=== PATIENT | male | born 1930 | race Caucasian/White ===

== ENCOUNTER 2016-05-23 15:45 | Inpatient (IN) | payer OTHER, BC ==
[~2016-05-23] VITALS: Ht 182.9 cm; Wt 91.0 kg
[~2016-05-23 15:45] MED LIST: AMLODIPINE BESYL5 MG PO; ASPIR 8181 M1 PO; ASPIRIN81 M2 PO; Aspirin E.C. PO; CENTRUM SILV1 TABLE1 PO; CENTRUM SILVER1 EAC3 PO; COLCRYS0.6 MG PO; COUMADIN,JANTOVE2 MG PO; DOCUSATE SODIU100 MG PO; Ferrous Gluconate PO; Flexeril PO; HYDROCHLOROTHIA25 MG PO; LANOXIN,DIGI0.125 MG PO; LASIX20 MG PO; LOPID600 MG PO; LOPRESSOR50 MG PO; LORTAB 5-325 M1 EACH PO; LYRICA150 MG PO; METAXALONE800 MG PO; METOPROLOL SUCC25 MG PO; METOPROLOL TART25 MG PO; MOTRIN600 MG PO; NAPRELAN500 MG PO; NAPROSYN500 MG PO; NEXIUM40 MG PO; NOVOLOG100 UNIT/2 SQ; Norco 7.5/325 PO; OXYCODONE5 MG PO; PANTOPRAZOLE SO40 MG PO; PERCOCET 5/31 TABLET PO; PRAVACHOL80 MG PO; PRINIVIL10 MG PO; PROTONIX40 MG PO; SKELAXIN800 MG PO; SOTALOL80 MG PO; SPIRIVA1 INHALATI IH; TYLENOL EXTRA500 MG PO; ZOFRAN4 MG PO; Zestril,Prinivil PO
[2016-05-23] MEDS ORDERED: NAPRELAN500 MG PO (16:32)
[2016-05-23 21:02] LABS: EOSINOPHIL (%) 0.2 % (0-5); HEMATOCRIT 46.2 % (38.0-50.0); IMMATURE GRANULOCYTE (%) 0.3 % (0.0-0.7); IMMATURE GRANULOCYTE COUNT 0.4 K/uL; LYMPHOCYTE COUNT 1.5 K/uL (1.0-2.8); MCH 28.1 PG (29.0-34.0); MCHC 33.8 G/DL (30.0-36.0); MCV 83.1 FL (86-99); MEAN PLAT.VOLUME 11.1 uM^3 (9.0-12.4); MONOCYTE (%) 7.1 % (3-12); MONOCYTE COUNT 1.1 K/uL (0-0.8); NEUTROPHIL (%) 82.6 % (45-76); NEUTROPHIL COUNT 12.7 K/uL (1.8-6.4); PLATELET COUNT 204 K/uL (156-360); RBC DIS.WIDTH-CV 13.7 % (11.8-14.6); RBC DIS.WIDTH-SD 41.4 % (39-53); RED BLOOD COUNT 5.56 M/uL (4.00-5.50); WHITE BLOOD COUNT 15.4 K/uL (4.1-10.2)
[2016-05-23 21:08] LABS: CHLORIDE 104 mEq/L (99-109); POTASSIUM 4.1 mEq/L (3.7-5.4); SODIUM 137 mEq/L (136-147)
[2016-05-23 21:10] LABS: GLUCOSE 107 mg/dL (70-99)
[2016-05-23 21:11] LABS: ANION GAP 11 MEQ/L (2-14)
[2016-05-23 21:13] LABS: ALKALINE PHOSPHATASE 104 IU/L (3-129); GFR ESTIMATE (CALCULATED) > 59 mL/min/
[2016-05-23 21:15] LABS: UREA NITROGEN (BUN) 19 mg/dL (9-23)
[2016-05-23] MEDS ORDERED: NAPROSYN500 MG PO (22:03)
[2016-05-23] MEDS ORDERED: ARTIFICIAL TEAR1510 BOTH EYES (22:04)
[2016-05-23] MEDS ORDERED: TRIAMCINOLONE A15 G2 TP (22:04)
[2016-05-24] VITALS (7 sets, daily range): BP systolic 100–161; BP diastolic 64–88
[2016-05-25 04:02] VITALS: BP 111/67
[2016-05-25 08:23] VITALS: BP 121/63
[2016-05-25 09:46] LABS: HEMATOCRIT 41.3 % (38.0-50.0); MCH 28.1 PG (29.0-34.0); MCHC 32.2 G/DL (30.0-36.0); MEAN PLAT.VOLUME 11.7 uM^3 (9.0-12.4); PLATELET COUNT 163 K/uL (156-360); RBC DIS.WIDTH-SD 44.7 % (39-53); RED BLOOD COUNT 4.73 M/uL (4.00-5.50)
[2016-05-25 09:47] LABS: MCV 87.3 FL (86-99)
[2016-05-25 09:49] LABS: INTER. NORMALIZED RATIO 1.1; PROTHROMBIN TIME 11.4 (9.2-11.2); PTT 29.8 (25-32)
[2016-05-25 09:57] LABS: ALKALINE PHOSPHATASE 72 IU/L (3-129); ANION GAP 7 MEQ/L (2-14); CHLORIDE 102 MEQ/L (99-109); GFR ESTIMATE (CALCULATED) > 59 mL/min/; GLUCOSE 129 mg/dL (70-99); POTASSIUM 3.9 MEQ/L (3.7-5.4); SAMPLE HEMOLYSIS CHECK 0; SAMPLE ICTERIC CHECK 0; SAMPLE LIPEMIA CHECK 0; SODIUM 136 MEQ/L (136-147); TOTAL BILIRUBIN 0.9 MG/DL (0.0-1.0); UREA NITROGEN (BUN) 20 mg/dL (9-23)
[2016-05-25 12:04] VITALS: BP 136/71
[2016-05-25 16:30] VITALS: BP 128/72
[2016-05-25 20:38] VITALS: BP 139/78
[2016-05-26 00:43] VITALS: BP 133/76
[2016-05-26 05:15] VITALS: BP 158/84
[2016-05-26 07:47] VITALS: BP 161/89
[2016-05-26 12:57] LABS: HEMATOCRIT 41.7 % (38.0-50.0); MCH 29.2 PG (29.0-34.0); MCHC 33.6 G/DL (30.0-36.0); MCV 87.1 FL (86-99); MEAN PLAT.VOLUME 11.5 uM^3 (9.0-12.4); PLATELET COUNT 170 K/uL (156-360); RBC DIS.WIDTH-CV 13.7 % (11.8-14.6); RBC DIS.WIDTH-SD 43.5 % (39-53); RED BLOOD COUNT 4.79 M/uL (4.00-5.50)
[2016-05-26 12:58] LABS: WHITE BLOOD COUNT 15.4 K/uL (4.1-10.2)
[2016-05-26 15:58] VITALS: BP 121/64
[2016-05-26 18:38] LABS: HEMATOCRIT 40.9 % (38.0-50.0); MCV 85.7 FL (86-99)
[2016-05-26 23:40] VITALS: BP 136/76
[2016-05-27 06:57] LABS: HEMATOCRIT 35.3 % (38.0-50.0); MCH 28.6 PG (29.0-34.0); MCHC 33.4 G/DL (30.0-36.0); MCV 85.7 FL (86-99); MEAN PLAT.VOLUME 11.5 uM^3 (9.0-12.4); PLATELET COUNT 178 K/uL (156-360); RBC DIS.WIDTH-CV 13.3 % (11.8-14.6); RBC DIS.WIDTH-SD 41.3 % (39-53); RED BLOOD COUNT 4.12 M/uL (4.00-5.50)
[2016-05-27 06:59] LABS: WHITE BLOOD COUNT 10.6 K/uL (4.1-10.2)
[2016-05-27 07:21] LABS: ANION GAP 7 MEQ/L (2-14); CHLORIDE 97 MEQ/L (99-109); GFR ESTIMATE (CALCULATED) > 59 mL/min/; POTASSIUM 4.5 MEQ/L (3.7-5.4); SAMPLE HEMOLYSIS CHECK 0; SAMPLE ICTERIC CHECK 0; SAMPLE LIPEMIA CHECK 0; SODIUM 132 MEQ/L (136-147); UREA NITROGEN (BUN) 18 mg/dL (9-23)
[2016-05-27 07:22] LABS: GLUCOSE 96 mg/dL (70-99)
[2016-05-27 07:37] VITALS: BP 127/65
[2016-05-27 16:15] VITALS: BP 144/76
[2016-05-28 06:15] LABS: HEMATOCRIT 32.2 % (38.0-50.0); MCH 28.7 PG (29.0-34.0); MCHC 33.2 G/DL (30.0-36.0); MCV 86.3 FL (86-99); MEAN PLAT.VOLUME 11.3 uM^3 (9.0-12.4); PLATELET COUNT 168 K/uL (156-360); RBC DIS.WIDTH-CV 13.3 % (11.8-14.6); RBC DIS.WIDTH-SD 41.8 % (39-53); RED BLOOD COUNT 3.73 M/uL (4.00-5.50); WHITE BLOOD COUNT 8.2 K/uL (4.1-10.2)
[2016-05-28 06:57] LABS: ANION GAP 8 MEQ/L (2-14); CHLORIDE 99 MEQ/L (99-109); GFR ESTIMATE (CALCULATED) > 59 mL/min/; GLUCOSE 91 mg/dL (70-99); POTASSIUM 3.5 MEQ/L (3.7-5.4); SAMPLE HEMOLYSIS CHECK 0; SAMPLE ICTERIC CHECK 0; SAMPLE LIPEMIA CHECK 0; SODIUM 134 MEQ/L (136-147); UREA NITROGEN (BUN) 13 mg/dL (9-23)
[2016-05-28 08:25] VITALS: BP 132/65
[2016-05-28 15:53] VITALS: BP 123/67
[2016-05-29 00:06] VITALS: BP 152/80
[2016-05-29 05:41] LABS: MCH 28.4 PG (29.0-34.0); MCHC 32.9 G/DL (30.0-36.0); MCV 86.3 FL (86-99); MEAN PLAT.VOLUME 11.4 uM^3 (9.0-12.4); PLATELET COUNT 193 K/uL (156-360); RBC DIS.WIDTH-CV 13.3 % (11.8-14.6); RED BLOOD COUNT 3.94 M/uL (4.00-5.50); WHITE BLOOD COUNT 7.6 K/uL (4.1-10.2)
[2016-05-29 06:07] LABS: ANION GAP 10 MEQ/L (2-14); CHLORIDE 97 MEQ/L (99-109); GFR ESTIMATE (CALCULATED) > 59 mL/min/; GLUCOSE 93 mg/dL (70-99); POTASSIUM 3.5 MEQ/L (3.7-5.4); SAMPLE HEMOLYSIS CHECK 0; SAMPLE ICTERIC CHECK 0; SAMPLE LIPEMIA CHECK 0; SODIUM 137 MEQ/L (136-147); UREA NITROGEN (BUN) 11 mg/dL (9-23)
[2016-05-29 08:26] VITALS: BP 165/94
[2016-05-29] MEDS ORDERED: BENADRYL25 MG PO (08:58)
[2016-05-29] MEDS ORDERED: LOVENOX40 MG/0.4 SC (08:58)
[2016-05-29] MEDS ORDERED: NAPROXEN500 MG PO (08:59)
[2016-05-29] MEDS ORDERED: Tums,OsCal PO (09:01)
[2016-05-29] MEDS ORDERED: BISACODYL5 MG PO (09:01)
[2016-05-29] MEDS ORDERED: SENNA PLUS TAB1 EACH PO (09:01)
[2016-05-29] MEDS ORDERED: LIDOCAINE700 MG TD (09:02)
[2016-05-29] MEDS ORDERED: MIRALAX255 GM PO (09:03)
[2016-05-30] MEDS ORDERED: TUMS500 MG PO (09:03)
== END 2016-05-29 13:11 | DRG 480 ==
LOC: EME 15:45 → EDOF 05-24 00:48 → 3EAST 05-24 00:48
PROVIDERS: Emergency Medicine; Internal Medicine; Orthopaedic Surgery; Physician Assistant
PROC: 0SW Lower Joints, Revision (ICD-10-PCS; principal; 2016-05-26)
DX: M97.02XA Periprosthetic fracture around internal prosthetic left hip joint, initial encounter (principal); S72.302A Unspecified fracture of shaft of left femur, initial encounter for closed fracture; E87.1 Hypo-osmolality and hyponatremia; S73.011A Posterior subluxation of right hip, initial encounter; K21.9 Gastro-esophageal reflux disease without esophagitis; K59.00 Constipation, unspecified; I48.0 Paroxysmal atrial fibrillation; M25.552 Pain in left hip; M25.551 Pain in right hip; S22.42XD Multiple fractures of ribs, left side, subsequent encounter for fracture with routine healing; I10 Essential (primary) hypertension; W01.0XXA Fall on same level from slipping, tripping and stumbling without subsequent striking against object, initial encounter; Y92.009 Unspecified place in unspecified non-institutional (private) residence as the place of occurrence of the external cause; Y99.9 Unspecified external cause status; Z88.6 Allergy status to analgesic agent; Z87.891 Personal history of nicotine dependence; Z96.643 Presence of artificial hip joint, bilateral; Z96.653 Presence of artificial knee joint, bilateral; Z79.82 Long term (current) use of aspirin
CPT/HCPCS: 71010; 72100; 73501; 73502; 73521; 73551; 73552; 73700; 76000; 80048; 80053; 85014; 85018; 85025; 85027; 85610; 85730; 86850; 86900; 86901; 93005; 94799; 97530 GP; 99281; 99285; C1713; J0330; J0690; J1170; J1650; J1885; J2270; J2405; J2710; J2765; J3010; J3360; J7030

== ENCOUNTER 2016-05-29 08:22 | Inpatient (IN) | payer OTHER, BC ==
[~2016-05-29] VITALS: Ht 182.9 cm; Wt 103.5 kg
[~2016-05-29 08:22] MED LIST changes: +ARTIFICIAL TEAR1510 BOTH EYES; +TRIAMCINOLONE A15 G2 TP
[2016-05-29] MEDS ORDERED: BENADRYL25 MG PO (08:58)
[2016-05-29] MEDS ORDERED: LOVENOX40 MG/0.4 SC (08:58)
[2016-05-29] MEDS ORDERED: NAPROXEN500 MG PO (08:59)
[2016-05-29] MEDS ORDERED: Tums,OsCal PO (09:01)
[2016-05-29] MEDS ORDERED: BISACODYL5 MG PO (09:01)
[2016-05-29] MEDS ORDERED: SENNA PLUS TAB1 EACH PO (09:01)
[2016-05-29] MEDS ORDERED: LIDOCAINE700 MG TD (09:02)
[2016-05-29] MEDS ORDERED: MIRALAX255 GM PO (09:03)
[2016-05-29 13:45] VITALS: BP 130/78
[2016-05-30] VITALS: BP 127/72
[2016-05-30 05:01] VITALS: BP 137/81
[2016-05-30 06:41] LABS: HEMATOCRIT 33.8 % (38.0-50.0); MCH 27.8 PG (29.0-34.0); MCHC 32.5 G/DL (30.0-36.0); MCV 85.4 FL (86-99); MEAN PLAT.VOLUME 11.4 uM^3 (9.0-12.4); PLATELET COUNT 236 K/uL (156-360); RBC DIS.WIDTH-CV 13.2 % (11.8-14.6); RBC DIS.WIDTH-SD 40.8 % (39-53); RED BLOOD COUNT 3.96 M/uL (4.00-5.50); WHITE BLOOD COUNT 7.8 K/uL (4.1-10.2)
[2016-05-30 07:28] LABS: ALKALINE PHOSPHATASE 80 IU/L (3-129); ANION GAP 10 MEQ/L (2-14); CHLORIDE 99 MEQ/L (99-109); GFR ESTIMATE (CALCULATED) > 59 mL/min/; GLUCOSE 87 mg/dL (70-99); POTASSIUM 3.7 MEQ/L (3.7-5.4); SAMPLE HEMOLYSIS CHECK 0; SAMPLE ICTERIC CHECK 0; SAMPLE LIPEMIA CHECK 0; SODIUM 137 MEQ/L (136-147); UREA NITROGEN (BUN) 12 mg/dL (9-23)
[2016-05-30 07:29] LABS: TOTAL BILIRUBIN 1.2 MG/DL (0.0-1.0)
[2016-05-30] MEDS ORDERED: TUMS500 MG PO (09:03)
[2016-05-30 15:23] VITALS: BP 160/80
[2016-05-31 05:06] VITALS: BP 133/88
[2016-05-31 15:00] VITALS: BP 140/70
[2016-06-01 05:00] VITALS: BP 163/72
[2016-06-01 15:17] VITALS: BP 111/58
[2016-06-02 05:29] VITALS: BP 132/69
[2016-06-02 15:19] VITALS: BP 118/62
[2016-06-03 05:51] VITALS: BP 154/87
[2016-06-03 15:29] VITALS: BP 142/75
[2016-06-04 05:54] VITALS: BP 144/77
[2016-06-04 15:13] VITALS: BP 147/74
[2016-06-05 05:18] VITALS: BP 135/78
[2016-06-05 15:40] VITALS: BP 112/72
[2016-06-06 04:57] VITALS: BP 150/86
[2016-06-06] MEDS ORDERED: AMLODIPINE BESYL5 MG PO (11:38)
[2016-06-06] MEDS ORDERED: LIDOCAINE700 MG TD (11:38)
[2016-06-06] MEDS ORDERED: SOTALOL80 MG PO (11:38)
[2016-06-06] MEDS ORDERED: PROTONIX40 MG PO (11:38)
[2016-06-06] MEDS ORDERED: LOVENOX40 MG/0.4 SC (11:38)
[2016-06-06] MEDS ORDERED: ASCORBIC ACID500 M3 PO (11:38)
[2016-06-06] MEDS ORDERED: OYSTER SHELL 51 EACH PO (11:38)
[2016-06-06] MEDS ORDERED: HYDROCODON-ACE1 EAC7 PO (11:38)
[2016-06-06] MEDS ORDERED: SENNA PLUS TAB1 EACH PO (11:38)
[2016-06-06] MEDS ORDERED: FOLIC ACID1 MG PO (11:38)
[2016-06-06] MEDS ORDERED: MIRALAX255 GM PO (11:38)
[2016-06-06 15:14] VITALS: BP 119/66
[2016-06-07 05:29] LABS: HEMATOCRIT 36.5 % (38.0-50.0); MCH 28.3 PG (29.0-34.0); MCHC 32.3 G/DL (30.0-36.0); MCV 87.5 FL (86-99); RBC DIS.WIDTH-CV 14.9 % (11.8-14.6); RBC DIS.WIDTH-SD 46.5 % (39-53); RED BLOOD COUNT 4.17 M/uL (4.00-5.50); WHITE BLOOD COUNT 9.3 K/uL (4.1-10.2)
[2016-06-07 05:48] VITALS: BP 142/74
[2016-06-07 06:40] LABS: ALKALINE PHOSPHATASE 104 IU/L (3-129); ANION GAP 8 MEQ/L (2-14); CHLORIDE 98 MEQ/L (99-109); GFR ESTIMATE (CALCULATED) > 59 mL/min/; GLUCOSE 93 mg/dL (70-99); MEAN PLAT.VOLUME 10.7 uM^3 (9.0-12.4); POTASSIUM 3.9 MEQ/L (3.7-5.4); SAMPLE HEMOLYSIS CHECK 0; SAMPLE ICTERIC CHECK 0; SAMPLE LIPEMIA CHECK 0; SODIUM 133 MEQ/L (136-147); UREA NITROGEN (BUN) 10 mg/dL (9-23)
[2016-06-07 06:45] LABS: PLATELET COUNT 362 K/uL (156-360)
[2016-06-07 15:16] VITALS: BP 122/77
[2016-06-08] MEDS ORDERED: AMBIEN5 MG PO (20:09)
== END 2016-06-08 00:23 | DRG 560 ==
LOC: 3WEST 08:22
PROVIDERS: Physical Medicine & Rehabilitation Pain Medicine
PROC: F07M0ZZ Range of Motion and Joint Mobility Treatment of Musculoskeletal System - Whole Body (ICD-10-PCS; principal; 2016-05-29)
DX: S72.302D Unspecified fracture of shaft of left femur, subsequent encounter for closed fracture with routine healing (principal); M97.02XD Periprosthetic fracture around internal prosthetic left hip joint, subsequent encounter; T84.020D Dislocation of internal right hip prosthesis, subsequent encounter; R26.2 Difficulty in walking, not elsewhere classified; D62 Acute posthemorrhagic anemia; E87.6 Hypokalemia; E83.51 Hypocalcemia; I10 Essential (primary) hypertension; M17.9 Osteoarthritis of knee, unspecified; I48.0 Paroxysmal atrial fibrillation; K21.9 Gastro-esophageal reflux disease without esophagitis; K59.00 Constipation, unspecified; H91.93 Unspecified hearing loss, bilateral; Z88.5 Allergy status to narcotic agent; Z91.19 Patient's noncompliance with other medical treatment and regimen
CPT/HCPCS: 73501; 73502; 73560; 73564; 80053; 85027; 97110 GO; 97530 GP; J1650

== ENCOUNTER 2016-06-08 00:59 | Observation (INO) | payer OTHER, BC ==
[~2016-06-08] VITALS: Ht 182.9 cm; Wt 103.2 kg
[~2016-06-08 00:59] MED LIST changes: +ASCORBIC ACID500 M3 PO; +BENADRYL25 MG PO; +BISACODYL5 MG PO; +FOLIC ACID1 MG PO; +HYDROCODON-ACE1 EAC7 PO; +LIDOCAINE700 MG TD; +LOVENOX40 MG/0.4 SC; +MIRALAX255 GM PO; +NAPROXEN500 MG PO; +OYSTER SHELL 51 EACH PO; +SENNA PLUS TAB1 EACH PO; +TUMS500 MG PO; +Tums,OsCal PO
[2016-06-08 01:43] VITALS: BP 149/87
[2016-06-08 04:22] VITALS: BP 131/78
[2016-06-08 08:25] VITALS: BP 137/88
[2016-06-08 11:50] VITALS: BP 140/80
[2016-06-08 16:29] VITALS: BP 126/77
[2016-06-08] MEDS ORDERED: AMBIEN5 MG PO (20:09)
== END 2016-06-08 17:30 ==
LOC: 3EAST 00:59
PROC: 0SW9XJZ Revision of Synthetic Substitute in Right Hip Joint, External Approach (ICD-10-PCS; principal; 2016-06-08)
DX: T84.020A Dislocation of internal right hip prosthesis, initial encounter (principal); I48.91 Unspecified atrial fibrillation; I10 Essential (primary) hypertension; K21.9 Gastro-esophageal reflux disease without esophagitis; Z96.653 Presence of artificial knee joint, bilateral; Z96.643 Presence of artificial hip joint, bilateral; Z87.891 Personal history of nicotine dependence
CPT/HCPCS: 73552; G0378; J1650; J7120

== ENCOUNTER 2016-06-08 15:22 | Inpatient (IN) | payer OTHER, BC ==
[~2016-06-08] VITALS: Ht 182.9 cm; Wt 86.0 kg
[2016-06-08 17:30] VITALS: BP 128/62
[2016-06-08] MEDS ORDERED: AMBIEN5 MG PO (20:09)
[2016-06-08 23:47] VITALS: BP 124/70
[2016-06-09 05:43] VITALS: BP 155/70
[2016-06-09 05:46] LABS: HEMATOCRIT 38.3 % (38.0-50.0); MCH 28.7 PG (29.0-34.0); MCHC 32.6 G/DL (30.0-36.0); MEAN PLAT.VOLUME 10.8 uM^3 (9.0-12.4); PLATELET COUNT 354 K/uL (156-360); RBC DIS.WIDTH-CV 14.8 % (11.8-14.6); RBC DIS.WIDTH-SD 47.5 % (39-53); RED BLOOD COUNT 4.35 M/uL (4.00-5.50); WHITE BLOOD COUNT 9.6 K/uL (4.1-10.2)
[2016-06-09 06:20] LABS: ALKALINE PHOSPHATASE 112 IU/L (3-129); ANION GAP 10 MEQ/L (2-14); CHLORIDE 97 MEQ/L (99-109); GFR ESTIMATE (CALCULATED) > 59 mL/min/; GLUCOSE 80 mg/dL (70-99); SAMPLE HEMOLYSIS CHECK 0; SAMPLE ICTERIC CHECK 0; SAMPLE LIPEMIA CHECK 0; SODIUM 133 MEQ/L (136-147); TOTAL BILIRUBIN 1.2 MG/DL (0.0-1.0); UREA NITROGEN (BUN) 9 mg/dL (9-23)
[2016-06-09 15:40] VITALS: BP 119/59
[2016-06-10 04:58] VITALS: BP 144/74
[2016-06-10 15:45] VITALS: BP 135/74
[2016-06-11 05:24] VITALS: BP 140/85
[2016-06-11 15:00] VITALS: BP 114/69
[2016-06-12 05:34] VITALS: BP 144/77
[2016-06-12 15:15] VITALS: BP 109/68
[2016-06-13 05:11] VITALS: BP 158/61
[2016-06-13 15:10] VITALS: BP 133/70
[2016-06-14 05:15] VITALS: BP 137/81
[2016-06-14 15:52] VITALS: BP 124/71
[2016-06-15 15:12] VITALS: BP 132/93
[2016-06-16 05:10] VITALS: BP 150/93
[2016-06-16 09:00] VITALS: BP 143/83
[2016-06-16 15:15] VITALS: BP 112/63
[2016-06-16] MEDS ORDERED: TYLENOL REGULA325 MG PO (17:50)
[2016-06-17 05:31] LABS: HEMATOCRIT 43.7 % (38.0-50.0); MCH 28.8 PG (29.0-34.0); MCHC 33.2 G/DL (30.0-36.0); MCV 86.9 FL (86-99); MEAN PLAT.VOLUME 11.2 uM^3 (9.0-12.4); PLATELET COUNT 279 K/uL (156-360); RBC DIS.WIDTH-CV 14.2 % (11.8-14.6); RBC DIS.WIDTH-SD 44.6 % (39-53); RED BLOOD COUNT 5.03 M/uL (4.00-5.50); WHITE BLOOD COUNT 8.1 K/uL (4.1-10.2)
[2016-06-17 05:48] VITALS: BP 130/68
[2016-06-17 06:00] LABS: ALKALINE PHOSPHATASE 125 IU/L (3-129); ANION GAP 10 MEQ/L (2-14); CHLORIDE 99 MEQ/L (99-109); GFR ESTIMATE (CALCULATED) > 59 mL/min/; GLUCOSE 91 mg/dL (70-99); SAMPLE HEMOLYSIS CHECK 0; SAMPLE ICTERIC CHECK 0; SAMPLE LIPEMIA CHECK 0; SODIUM 135 MEQ/L (136-147); TOTAL BILIRUBIN 0.8 MG/DL (0.0-1.0); UREA NITROGEN (BUN) 14 mg/dL (9-23)
[2016-06-17 15:01] VITALS: BP 131/62
[2016-06-18 05:33] VITALS: BP 161/74
[2016-06-18 13:00] VITALS: BP 160/78
== END 2016-06-18 14:15 | DRG 560 ==
LOC: 3WEST 15:22
PROVIDERS: Physical Medicine & Rehabilitation Pain Medicine
PROC: F07M0ZZ Range of Motion and Joint Mobility Treatment of Musculoskeletal System - Whole Body (ICD-10-PCS; principal; 2016-06-08)
DX: Z47.89 Encounter for other orthopedic aftercare (principal); R26.2 Difficulty in walking, not elsewhere classified; E87.1 Hypo-osmolality and hyponatremia; D62 Acute posthemorrhagic anemia; Z96.643 Presence of artificial hip joint, bilateral; I10 Essential (primary) hypertension; I48.0 Paroxysmal atrial fibrillation; K21.9 Gastro-esophageal reflux disease without esophagitis; M19.90 Unspecified osteoarthritis, unspecified site; H91.93 Unspecified hearing loss, bilateral; G47.00 Insomnia, unspecified; K59.00 Constipation, unspecified; E83.51 Hypocalcemia; G89.18 Other acute postprocedural pain; Z88.5 Allergy status to narcotic agent
CPT/HCPCS: 80053; 85027; 97110 GO; 97530 GP; J1650

== ENCOUNTER → 2016-11-02 | Outpatient (CLI) | payer MEDICARE, BC ==
[~2016-11-02] MED LIST changes: +AMBIEN5 MG PO; +TYLENOL REGULA325 MG PO
== END | disposition home or self-care (01) ==
LOC: CDC 14:16
DX: R94.31 Abnormal electrocardiogram [ECG] [EKG] (principal); M67.432 Ganglion, left wrist
CPT/HCPCS: 93000